=== PATIENT | male | born 1955 | race Caucasian/White ===

== ENCOUNTER 2021-05-23 13:58 | Inpatient (IN) | payer OTHER ==
[~2021-05-23] VITALS: Ht 185.4 cm; Wt 109.8 kg
[2021-05-23 14:03] VITALS: BP 148/71
[2021-05-23 15:25] LABS: HEMATOCRIT 41.7 % (42.0-52.0); HEMOGLOBIN 14.3 gm/dL (14.0-18.0); MCH 38.9 pg (26.0-34.0); MCHC 34.4 g/dL (28.0-37.0); MCV 113.1 fL (80.0-100.0); PLATELET COUNT 88 thou/uL (150-400); RBC 3.69 mil/uL (4.50-6.00); RDW 16.5 % (10.5-14.5); WBC 2.2 thou/uL (4.0-11.0)
[2021-05-23 15:34] LABS: CALCIUM 8.6 mg/dL (8.5-10.1); CREATININE 1.1 mg/dL (0.7-1.3); POTASSIUM 3.6 mmol/L (3.5-5.1)
[2021-05-23 15:44] LABS: ALBUMIN 3.3 g/dL (3.4-5.0); TOTAL BILIRUBIN 0.7 mg/dL (0.2-1.0); TOTAL PROTEIN 7.9 g/dL (6.4-8.2)
[2021-05-23 16:48] LABS: ABSOLUTE NEUTROPHILS 1.6 thou/uL (1.4-8.2)
--- NOTE | 2021-05-24 01:23 | NUR ---
FAMILY PHONE JORDAN [phone] YOUNGEST LUC [phone] MIDDLE LUIS ALBERTO [phone] [place] JOS[place] [id number] BRYAN HeadRAY)
[2021-05-24 06:09] LABS: HEMOGLOBIN 13.5 gm/dL (14.0-18.0); MCH 38.8 pg (26.0-34.0); MCHC 34.7 g/dL (28.0-37.0); MCV 111.9 fL (80.0-100.0); RBC 3.49 mil/uL (4.50-6.00); RDW 16.7 % (10.5-14.5); WBC 2.4 thou/uL (4.0-11.0)
[2021-05-24 06:21] LABS: CALCIUM 8.3 mg/dL (8.5-10.1); CREATININE 1.2 mg/dL (0.7-1.3); DIRECT BILIRUBIN 0.2 mg/dL (<0.1-0.2); PHOSPHORUS 3.7 mg/dL (2.6-4.7); POTASSIUM 3.8 mmol/L (3.5-5.1); TOTAL BILIRUBIN 0.7 mg/dL (0.2-1.0); TOTAL PROTEIN 7.3 g/dL (6.4-8.2)
--- NOTE | 2021-05-24 07:53 | NUR ---
UPDATED DAUGHTER IN LAW ON PLAN OF CARE.
--- NOTE | 2021-05-24 11:58 | EKG ---
[address] [place] [address] ELECTROCARDIOGRAM REPORT Name: MAURICIO HURLEY Room #: 170-4 ADM IN M.R.#: [id number] Admission: 05/23/21 Attend Phys: Milan Oliva Discharge: Date of : 59 Report #: [id number] [facility] ED Test Date: 2021-05-23 Test Time: 14:06:19 Pat Name: MAURIICO HURLEY Department: Room: 170 Gender: M Logistic Manager: palmer : 1955 Requested By: Maxim Hernandez Order Number: [id number] MD: Delfino Bishop Measurements Intervals [place] Rate: 72 P: -19 OR: 143 QRS: 4 QRSD: 105 T: 10 QT: 385 QTc: 422 Interpretive Statements Sinus rhythm No significant abnormality No previous ECG available for comparison Electronically Signed On 05-24-2021 11:57:52 SPINDRAW OPERATOR by Delfino Bishop [email or web address] <ELECTRONICALLY SIGNED> By: Delfino Bishop MD, [facility] 05/24/21 1157 1406 1406 Delfino Bishop MD, FACC /EPI
[2021-05-24 14:24] VITALS: BP 135/70
--- NOTE | 2021-05-24 14:27 | NUR ---
PT DESAT TO 70S WHEN TAKING O2 OFF
[2021-05-24 21:58] VITALS: BP 167/89
[2021-05-24 23:05] VITALS: BP 156/90
--- NOTE | 2021-05-24 23:30 | NUR ---
Pt. admitted to the unit from emergency room accompanied by staff. He is alert and oriented. Admission assessment and history is completed. He c/o nausea and ivp zofran given (see emar) with some relief noted.
[2021-05-25 04:45] VITALS: BP 143/61
--- NOTE | 2021-05-25 05:23 | NUR ---
Pt. rested quietly at intervals during the night when checked on during frequent rounds. He does have a non-productive congested cough and head of the bed elevated. No c/o increased shortness of air. Continues on opti- flow.
[2021-05-25 05:36] LABS: ALBUMIN 2.8 g/dL (3.4-5.0); CALCIUM 8.8 mg/dL (8.5-10.1); DIRECT BILIRUBIN 0.3 mg/dL (<0.1-0.2); PHOSPHORUS 4.6 mg/dL (2.5-4.9); POTASSIUM 3.8 mmol/L (3.5-5.1); TOTAL BILIRUBIN 0.7 mg/dL (0.2-1.0); TOTAL PROTEIN 7.5 g/dL (6.4-8.2)
[2021-05-25 07:51] VITALS: BP 130/69
[2021-05-25 15:11] VITALS: BP 129/111
--- NOTE | 2021-05-25 15:57 | NUR ---
PATIENT IS ALERT AND ORIENTED X4 THIS SHIFT. HE HAS DIMINISHED LUNG SOUNDS IN THE BASES. PATIENT IS STILL ON OPTIFLOW. PATIENT IS MED- SURGE/ TELE AND HAS BEEN SINUS XAVI THIS SHIFT. PATIENT HAS BEEN USING THE URINAL THIS SHIFT TO VOID. PATIENT HAS NO SKIN ISSUES AT THIS TIME. PEDRO LUIS HAS AN IV IN HIS RIGHT AC THAT IS SALINE LOCKED AND PATENT. PATIENT WILL CONTINUE TO BE MONITORED.
[2021-05-25 20:40] VITALS: BP 130/81
--- NOTE | 2021-05-25 23:32 | NUR ---
PT IS ALERT AND ORIENTED. ANSWERS QUESTIONS APPROPRIATELY TONIGHT. VSS AFEBRILE SAT FLUCTUATES 89-93% ON OPTIFLO FIO2 70% AND LF 50. SN ON MONITOR. NO C/O PAIN OR SOA TONIGHT SO FAR. BED DOWN CALL LIGHT IN REACH. BED ALARM IS ON.
[2021-05-26 04:11] VITALS: BP 136/74
[2021-05-26 04:49] LABS: ALBUMIN 2.8 g/dL (3.4-5.0); CALCIUM 8.9 mg/dL (8.5-10.1); CREATININE 0.9 mg/dL (0.7-1.3); DIRECT BILIRUBIN 0.3 mg/dL (<0.1-0.2); PHOSPHORUS 3.9 mg/dL (2.5-4.9); POTASSIUM 3.6 mmol/L (3.5-5.1); TOTAL BILIRUBIN 0.7 mg/dL (0.2-1.0); TOTAL PROTEIN 7.3 g/dL (6.4-8.2)
--- NOTE | 2021-05-26 07:36 | NUR ---
PT PROGRESSING SLOWLY TOWARDS D/C GOALS. VSS AFEBRILE. THIS AM. SATS WNL ON CURRENT OPIFLO 50LF AND 70% FIO2. NO C/O PAIN TONIGHT,
[2021-05-26 07:52] VITALS: BP 155/65
[2021-05-26 16:45] VITALS: BP 146/79
--- NOTE | 2021-05-26 17:16 | NUR ---
INITIAL ASSESSMENT: YOHANA reviewed chart and spoke with nursing and attending physician. Pt was admitted from home due to COVID pneumonia. Pt placed in Enhanced Isolation. Pt has not received a COVID vaccination. Pt is afebrile and on optiflow. Pt is on IV steroids and IV lasix. Pt is on Remdesivir. YOHANA placed call to pt's room. No answer. SW received message to call pt's son, Mario, regarding insurance issues. SW left voice message for Mario. Pt lives at home alone. Pt listed as patient pay. YOHANA is following to assist as needed with discharge planning.
--- NOTE | 2021-05-26 17:31 | NUR ---
CARE ASSUMED THIS AM, ALERT AND ORIENTED X4, DENIES ANY PAIN. COMPLAINED OF SOME NAUSEA THIS AM, ZOFRAN GIVEN. STATED IT BETTER. PT ON 75% AND 50L ON OPTIFLOW. USES URINAL. PT NICOLE IN LAW CALLED UPDATED ABOUT HIS CARE. CONTINUE TO BE ON ENHANCED ISOLATION. FALL PRECAUTIONS IN PLACE. DENIES ANY NEEDS ADELAIDA, WILL CONTINUE TO MONITOR.
[2021-05-26 18:59] VITALS: BP 131/72
[2021-05-26 22:06] LABS: HEMATOLOGY COMMENTS Note: (()); HEMOGLOBIN 14.3 g/dL (13.0-17.7)
--- NOTE | 2021-05-27 00:40 | NUR ---
PT ALERT AND ORIENTED X4. VSS AFEBRILE. O2 SATS 88-93% ON OPTIFLOW 75%FIO2 AND 50 LF. NO C/O PAIN, SOA, OR NAUSEA THIS SHIFT SO FAR. PT RESTING QUIETLY PRESENTLY. NO S/S DISTRESS. BED DOWN CALL LIGHT WITHIN REACH. BED ALARM.IS ON.
[2021-05-27 03:47] VITALS: BP 130/75
[2021-05-27 05:43] LABS: HEMATOCRIT 40.6 % (42.0-52.0); MCH 38.3 pg (26.0-34.0); MCHC 34.6 g/dL (28.0-37.0); MCV 110.6 fL (80.0-100.0); PLATELET COUNT 93 thou/uL (150-400); RBC 3.67 mil/uL (4.50-6.00); RDW 16.5 % (10.5-14.5)
[2021-05-27 06:18] LABS: % SATURATION 40 % (20-39); IRON 76 ug/dL (65-175); TIBC 189 ug/dL (250-450)
[2021-05-27 06:43] LABS: ALBUMIN 2.8 g/dL (3.4-5.0); CALCIUM 8.5 mg/dL (8.5-10.1); CREATININE 0.9 mg/dL (0.7-1.3); DIRECT BILIRUBIN 0.3 mg/dL (<0.1-0.2); PHOSPHORUS 3.7 mg/dL (2.5-4.9); POTASSIUM 3.6 mmol/L (3.5-5.1); TOTAL BILIRUBIN 0.8 mg/dL (0.2-1.0); TOTAL PROTEIN 7.3 g/dL (6.4-8.2)
[2021-05-27 06:53] LABS: URINE BILIRUBIN NEGATIVE (Negative); URINE BLOOD NEGATIVE (Negative); URINE CLARITY CLEAR; URINE COLOR YELLOW; URINE GLUCOSE-RANDOM* NEGATIVE (Negative); URINE KETONES NEGATIVE (Negative); URINE LEUKOCYTES-REFLEX NEGATIVE (Negative); URINE NITRITE-REFLEX NEGATIVE (Negative); URINE PROTEIN (DIPSTICK) NEGATIVE (Negative); URINE UROBILINOGEN 0.2 E.U./dl (0.2-1.0)
--- NOTE | 2021-05-27 06:53 | NUR ---
PT WANTED TO HAVE A BM THIS AM AND REFUSED TO USE BEDPAN. PT GOT UP TO BSC WITH STANDBY ASSISTANCE OF 2. PT DESATTED TO 83% -84%. PT PUT BACK TO BED RT NOTIFIED. OPTIFLOW INCREASED TO 100%. LASIX GIVEN IV. NOTIFIED STITCHING DEPARTMENT SUPERVISOR PTS FAMILY REQUESTED XRAY SINCE MANUEL DONE RECENTLY. PCXRAY ORDERED. PT RESTING IN BED. 93-94 % PRESENTLY.
[2021-05-27 07:51] VITALS: BP 117/65
--- NOTE | 2021-05-27 08:08 | HC ---
[facility] [place] [address] CONSULTATION Name: MAURICIO HURLEY Room #: 354- ADM IN M.R.#: [id number] Admission: 05/23/21 Attend Phys: Milan Oliva Discharge: Date of : 59 Report #: [id number] THIS REPORT FOR: cc: NO FAMILY PHYSICIAN or PCP NO FAMILY PHYSICIAN or PCP Zhen Liu MD ~ DATE OF SERVICE: 05/26/2021 ATTENDING PHYSICIAN: Dr. Oliva. REASON FOR EVALUATION: COVID-19 infection, complicated by pneumonitis and respiratory failure, ARDS. HISTORY OF PRESENT ILLNESS: Chart reviewed. The patient examined. A 65-year-old without significant medical history who presented to the Emergency Room with complaints of progressive dyspnea, nonproductive cough. He was noted to be hypoxemic with saturations in the upper 80s, improved on supplemental oxygen 4 liters and have some weakness and progressive dyspnea, subsequently developed some nausea as well. Evaluation noted bilateral pneumonitis on chest x-ray. Coronavirus testing was positive, interesting CBC. He was leukopenic with a total white count of 2200, thrombocytopenic of 88. MCV was elevated at 113, although he was not anemic. Procalcitonin less than 0.05. D-dimer was mildly elevated at 3.63. Blood cultures collected on the time of admission was negative thus far. He is currently requiring significant supplemental oxygen per Optiflow 50 liters per minute, FiO2 of 74%, maintained borderline saturations. He has been empirically started on combination empiric levofloxacin, empiric remdesivir as well as corticosteroids and vitamins. ALLERGIES: None known. CURRENT MEDICATIONS: Include levofloxacin, cholecalciferol, zinc, ascorbic acid, dexamethasone, furosemide, morphine, zolpidem p.r.n. q.6, antiemetics, remdesivir. PAST MEDICAL HISTORY: Otherwise, unremarkable. SOCIAL HISTORY: Nonsmoker, no ethanol, no illicit drug use. FAMILY HISTORY: Noncontributory. REVIEW OF SYSTEMS: Otherwise, unremarkable. PHYSICAL EXAMINATION: GENERAL: He is alert, cooperative. He is in moderate distress, generally lucid. VITAL SIGNS: Temperature 97.3, pulse 59, respirations 22, blood pressure [facility] [address] [place] [address] CONSULTATION Name: MAURICIO HURLEY Room #: 354-P [facility] IN ..#: [id number] Admission: 05/23/21 Attend Phys: Milan Oliva Discharge: Date of : 59 Report #: [id number] 155/65. SKIN: Warm, dry, no rashes. HEENT: Optiflow in place. Extraocular muscles intact. NECK: Supple. LUNGS: Bilateral scattered coarse breath sounds. HEART: Regular, borderline tachycardia bradycardic. I do not appreciate a murmur. ABDOMEN: Obese, mildly firm, nontender. EXTREMITIES: No cyanosis. GENITOURINARY AND RECTAL: Deferred. LABORATORY DATA: Electrolytes: Sodium 138, potassium 3.6, chloride 100, bicarbonate is 29, anion gap of 9, BUN and creatinine 36 and 0.9, glucose of 0.9, AST 52, ALT of 31, albumin of 2.8, total protein 7.3. Blood cultures sterile thus far. CRP of 46.2. Sed rate of 14. ASSESSMENT AND PLAN: COVID-19 infection, complicated by pneumonitis and respiratory failure with ARDS. He may have some occult process as well given the macrocytosis in the setting of thrombocytopenia and leukopenia with a marked lymphocytopenia. As a reason, we will continue empiric therapy with antibacterials. Try to obtain sputum. We will do additional diagnostic tests as well. He remains quite tenuous. We will continue to monitor expectantly, oxygen therapy as required, wean as allowed. <ELECTRONICALLY SIGNED> By: Zhen Liu MD 05/27/21 0808 0905 1215 Zhen Liu MD /nt
[2021-05-27 10:08] LABS: HIV ANTIBODY Non Reactive (Non Reactive)
[2021-05-27 11:41] LABS: ANISOCYTOSIS 1+; MACROCYTES 2+; PLATELET ESTIMATE DECREASED
--- NOTE | 2021-05-27 12:48 | NUR ---
CARE ASSUMED THIS AM, PT IS CURRENTLY ON 50L, 80% FIO2, STATED HE IS "NOT FEELING" TOO GOOD TODAY. ZOFRAN GIVEN FOR NAUSEA. TYELNOL FOR HEADACHE. PT ENCOURAGE TO PRONE AND USE IS WHEN POSSIBLE. PT DAUGHTER IN LAW CALLED, GAVE HER UPDATE. CONTINUE TI BE IN ENHANCED PRECAUTIONS. WILL CONTINUE TO MONITOR
[2021-05-27 15:03] VITALS: BP 136/72
--- NOTE | 2021-05-27 17:05 | NUR ---
YOHANA reviewed chart and spoke with nursing and attending physician. Pt remains in Enhanced Isolation due to COVID. Pt is afebrile and requiring optiflow. PT is on IV meds and completing course of Remdesivir. YOHANA spoke with pt's son, Mario, via phone. Introduced role of YOHANA. Pt is normally alert/orientated x 4 and lives at home alone. Prior to admission, pt was independent with ADLs. No use of DME. No hx of HH or post-acute placement. Pt's son is unsure if pt has a PCP. Pt's son states that pt has health insurance through [employer]. Pt's son is trying to find his insurance card or statement at home and will provide to YOHANA. YOHANA updated UR and director of case mgmt. Pt is listed as patient pay. YOHANA is following to assist as needed with discharge planning.
[2021-05-27 19:40] VITALS: BP 122/70
[2021-05-28 03:24] LABS: HEMATOCRIT 40.4 % (42.0-52.0); MCH 38.5 pg (26.0-34.0); MCHC 34.6 g/dL (28.0-37.0); MCV 111.1 fL (80.0-100.0); RBC 3.64 mil/uL (4.50-6.00); RDW 16.2 % (10.5-14.5); WBC 3.2 thou/uL (4.0-11.0)
[2021-05-28 04:40] VITALS: BP 126/73
[2021-05-28 05:39] LABS: ALBUMIN 2.7 g/dL (3.4-5.0); CALCIUM 8.7 mg/dL (8.5-10.1); DIRECT BILIRUBIN 0.3 mg/dL (<0.1-0.2); PHOSPHORUS 3.1 mg/dL (2.5-4.9); POTASSIUM 3.9 mmol/L (3.5-5.1); TOTAL BILIRUBIN 0.8 mg/dL (0.2-1.0); TOTAL PROTEIN 7.1 g/dL (6.4-8.2)
--- NOTE | 2021-05-28 07:33 | NUR ---
NO COMPLAINTS OF NAUSEA OVER NIGHT. OPTIFLOW AT 50L AND 80% WITH SATURATIONS AT 93%. PT WILL DESAT VERY QUICKLY WITH MOVEMENT AND WHEN HE IS HAVING COUGHING SPELLS. POC WITH IV ABX. A/OX4 AND VSS OVERNIGHT WITHOUT FEVER. CALL LIGHT WITHIN REACH.
[2021-05-28 07:44] VITALS: BP 133/61
--- NOTE | 2021-05-28 14:33 | NUR ---
YOHANA reviewed chart and spoke with nursing and attending physician. Pt remains in Enhanced Isolation due to COVID. Pt is afebrile and on optiflow. Pt is on IV abx and IV steroids. Therapy is on hold at this time, until pt is able to participate. Pt's insurance verified. Pt has active insurance through [employer]. YOHANA updated pt's son, who was able to find an insurance statement. YOHANA is following to assist as needed with discharge planning.
[2021-05-28 15:20] VITALS: BP 115/58
--- NOTE | 2021-05-28 18:01 | NUR ---
ASSUMED PATIENT CARE AT 0700. A/O X4. SOB WITH EXERTION. ON OPTIFLOW 50L/90%. NOT TOWARDS POC GOALS.
[2021-05-28 19:25] VITALS: BP 127/62
[2021-05-29 03:30] VITALS: BP 140/69
[2021-05-29 03:39] LABS: ABSOLUTE NEUTROPHILS 2.1 thou/uL (1.4-8.2); BASOPHILS 0.2 % (0.0-2.0); EOSINOPHILS 1.4 % (0.0-3.0); HEMATOCRIT 38.5 % (42.0-52.0); HEMOGLOBIN 13.7 gm/dL (14.0-18.0); LYMPHOCYTES 20.2 % (24.0-44.0); MCHC 35.5 g/dL (28.0-37.0); MCV 109.9 fL (80.0-100.0); MONOCYTES 6.4 % (1.0-8.0); PLATELET COUNT 88 thou/uL (150-400); POLYS 71.8 % (36.0-66.0); RDW 16.2 % (10.5-14.5)
--- NOTE | 2021-05-29 06:38 | NUR ---
VSS STABLE OVERNIGHT. PULSE OX SHOWING 02 SATURATION IN MID 90'S. VSS WITH NO FEVER NOR N/V. COVID POC WITH IV ABX. PT STILL NOT WANTING TO GET OUT OF BED. SPOKE TO PT DAUGHTER IN LAW WHO CALLS MULTIPLE TIMES. SHE SAID SHE WOULD LIKE HOSPITALIST TO CALL HER(JOSÉ) [phone]. PT VOIDS VIA URINAL.
[2021-05-29 08:14] VITALS: BP 120/75
--- NOTE | 2021-05-29 14:19 | NUR ---
SW reviewed chart and spoke with nursing and attending physician. Pt remains in Enhanced Isolation due to COVID. Pt is afebrile and on optiflow. Pt is on IV meds and Baricitinib. PT/OT evals completed today. YOHANA is following to assist as needed with discharge planning.
[2021-05-29 16:30] VITALS: BP 141/75
--- NOTE | 2021-05-29 18:31 | NUR ---
PATIENT OUT OF BED, EATTING BETTER. SLOLWLY TOWARDS POC GOALS,
[2021-05-29 19:47] VITALS: BP 135/82
[2021-05-30 02:59] LABS: HEMATOCRIT 40.2 % (42.0-52.0); MCH 38.9 pg (26.0-34.0); MCV 111.3 fL (80.0-100.0); RBC 3.61 mil/uL (4.50-6.00); RDW 16.2 % (10.5-14.5); WBC 4.3 thou/uL (4.0-11.0)
[2021-05-30 03:04] LABS: ALBUMIN 2.6 g/dL (3.4-5.0); CALCIUM 8.9 mg/dL (8.5-10.1); POTASSIUM 3.9 mmol/L (3.5-5.1); TOTAL BILIRUBIN 0.8 mg/dL (0.2-1.0); TOTAL PROTEIN 7.3 g/dL (6.4-8.2)
[2021-05-30 03:50] VITALS: BP 138/76
--- NOTE | 2021-05-30 04:34 | NUR ---
PT MAKING SLOW PROGRESS TOWARDS GOALS. PT INITIALLY ON OPTIFLO AT 55L/83% FIO2. LUNGS DIMINISHED THROUGHOUT. PT REPORTS COUGH IS GREATLY REDUCED IN INTENSITY. THIS AM PT PRODCUCED SMALL AMOUNT OF BLOOD TINGED CLEAR SPUTUM WITH COUGHING. OPTFLO SET AT 50L/76% FIO2. LUNGS REMAIN DIMINISHED.
[2021-05-30 08:04] VITALS: BP 134/86
--- NOTE | 2021-05-30 14:08 | NUR ---
SW reviewed chart and spoke with nursing and attending physician. Pt remains in Enhanced Isolation due to COVID. Pt is afebrile and requiring optiflow. Pt is on IV steroids and IV lasix. No weekend discharge planned. Chest CT ordered today. YOHANA is following to assist as needed with discharge planning.
[2021-05-30 16:30] VITALS: BP 149/62
--- NOTE | 2021-05-30 18:10 | NUR ---
ASSUMED PATIENT CARE AT 0700. A/O X4. OUT OF BED TO CHAIR. SLOWLY TOWARDS POC GOALS.
[2021-05-30 19:22] VITALS: BP 116/78
[2021-05-31 06:01] VITALS: BP 136/83
[2021-05-31 07:43] VITALS: BP 130/84
--- NOTE | 2021-05-31 16:32 | NUR ---
RN ASSUMED PT'S CARE AT 0700AM, PT IS A&OX4, PT IS ON MASK O2 15L/MIN, PT'S O2SAT STAY AT 92-95%, PT'S VS ARE STABLE BY THIS TIME, BUT PT STILL HAS SOB WITH ACTIVITIES, PT IS CONTINUING ABX AND TREAT COVID MEDICATIONS, PT DENIES PAIN BY THIS TIME.
[2021-05-31 16:54] VITALS: BP 149/92
[2021-05-31 20:17] VITALS: BP 135/82
--- NOTE | 2021-06-01 04:27 | NUR ---
PT ALERT & ORIENTED X 4. CURRENTLY ON OPTILFOW 45L 72% FIO2. SR ON TELE MONITOR. VSS AFEBRILE. NO C/O PAIN, NAUSEA/VOMITTING. PT IS ABLE TO MAKE NEEDS KNOWN. CONTINUE WITH PLAN OF CARE.
[2021-06-01 05:35] LABS: ABSOLUTE NEUTROPHILS 3.2 thou/uL (1.4-8.2); BASOPHILS 0.3 % (0.0-2.0); EOSINOPHILS 1.5 % (0.0-3.0); HEMATOCRIT 39.9 % (42.0-52.0); HEMOGLOBIN 13.8 gm/dL (14.0-18.0); LYMPHOCYTES 18.7 % (24.0-44.0); MCH 38.2 pg (26.0-34.0); MCHC 34.6 g/dL (28.0-37.0); MCV 110.4 fL (80.0-100.0); MONOCYTES 5.8 % (1.0-8.0); PLATELET COUNT 138 thou/uL (150-400); POLYS 73.7 % (36.0-66.0); RBC 3.62 mil/uL (4.50-6.00); RDW 16.1 % (10.5-14.5); WBC 4.3 thou/uL (4.0-11.0)
[2021-06-01 05:47] VITALS: BP 142/78
[2021-06-01 07:25] VITALS: BP 148/68
--- NOTE | 2021-06-01 15:21 | NUR ---
RN ASSUMED PT'S CARE AT 0700AM, PT IS A&OX4, PT IS ON OPTIFLOW O2 60%, 40L/MIN , PT'S O2SAT STAY AT 92-96%, PT HAS SOB WITH EXERTION, PT'S VS ARE STABLE BY THIS TIME, PT IS CONTINUING PO ABX AND TREAT COVID MEDICATIONS, PT DENIES PAIN BY THIS TIME.
[2021-06-01 15:52] VITALS: BP 143/91
[2021-06-01 19:32] VITALS: BP 121/68
[2021-06-02 03:34] VITALS: BP 124/58
--- NOTE | 2021-06-02 03:51 | NUR ---
ASSUMED PT CARE AT 1900. PT ALERT & ORIENTED X 4. NO C/O OF PAIN, NAUSEA/VOMITTING. VSS AFEBRILE. CURRENTLY ON OPTIFLOW 40L 53% FIO2. O2 SATS 92-95% ALL NEEDS ARE MET AT THIS TIME. CONTINUE WITH POC GOALS.
[2021-06-02 07:51] VITALS: BP 132/97
[2021-06-02 15:57] VITALS: BP 116/66
--- NOTE | 2021-06-02 16:06 | NUR ---
YOHANA reviewed chart and spoke with nursing and attending physician. Pt remains in Enhanced Isolation due to COVID. Pt is afebrile and on optiflow. Pt is on IV steroids and IV lasix. Therapy ordered. YOHANA spoke with pt via phone. Introduced role of SW. Pt is alert/orientated and states he is feeling better. Pt is aware that he may need to d/c home with home O2. Pt does not currently have a PCP. Plan is for pt to discharge home when medically stable. YOHANA is following to assist as needed with discharge planning.
--- NOTE | 2021-06-02 18:45 | NUR ---
RN ASSUMED PT'S CARE AT 0700AM, PT IS A&OX4, PT IS OFF OPTIFLOW AND PT IS ON O2 5-6L/MIN/NC AT MOST OF TIME, PT 'S O2SAT STAY AT 92-96%, PT'S VS ARE STABLE AT DAY SHIFT, BUT PT STILL HAS SOB WITH ACTIVITIES, PT GETS UP CHAIR AND BATH ROOM WITHOUT ASSIST, PT DENIES PAIN BY THIS TIME, PT IS CONTINUING PO ABX AND TREAT COVID MEDICATIONS.
[2021-06-02 19:14] VITALS: BP 119/75
[2021-06-03 04:13] VITALS: BP 126/57
[2021-06-03 05:14] LABS: MCV 109.6 fL (80.0-100.0); RDW 15.8 % (10.5-14.5)
[2021-06-03 05:20] LABS: ABSOLUTE NEUTROPHILS 2.9 thou/uL (1.4-8.2); ALBUMIN 2.6 g/dL (3.4-5.0); BASOPHILS 0.3 % (0.0-2.0); CALCIUM 8.8 mg/dL (8.5-10.1); CREATININE 0.8 mg/dL (0.7-1.3); DIRECT BILIRUBIN 0.2 mg/dL (<0.1-0.2); EOSINOPHILS 1.5 % (0.0-3.0); HEMATOCRIT 37.5 % (42.0-52.0); HEMOGLOBIN 13.4 gm/dL (14.0-18.0); LYMPHOCYTES 23.5 % (24.0-44.0); MCH 39.1 pg (26.0-34.0); MCHC 35.7 g/dL (28.0-37.0); PHOSPHORUS 3.6 mg/dL (2.5-4.9); PLATELET COUNT 147 thou/uL (150-400); POLYS 65.7 % (36.0-66.0); POTASSIUM 3.1 mmol/L (3.5-5.1); RBC 3.42 mil/uL (4.50-6.00); TOTAL BILIRUBIN 0.5 mg/dL (0.2-1.0); TOTAL PROTEIN 6.8 g/dL (6.4-8.2); WBC 4.4 thou/uL (4.0-11.0)
[2021-06-03 07:33] VITALS: BP 99/47
[2021-06-03 08:30] VITALS: BP 132/65
[2021-06-03 15:53] VITALS: BP 116/66
--- NOTE | 2021-06-03 18:21 | NUR ---
RN ASSUMED PT'S CARE AT 0700AM, PT IS A&OX4, PT IS ON O2 4L/MIN/NC, PT IS CONTINUING TREAT COVID MEDICATIONS, PT'S O2SAT STAY 92-96%, PT DENIES PAIN AND SOB AT DAY SHIFT.
[2021-06-03 19:04] VITALS: BP 120/69
[2021-06-04 02:56] VITALS: BP 130/79
--- NOTE | 2021-06-04 03:21 | NUR ---
Slept some and woke up early. Now up in the chair eating sandwich. Maintaining O2 sat in the mid 90's on 3L/NC. Verbalized improvement in breathing. Up ad jeannie in room with steady gait. Cont. on enhanced precaution , afebrile. Making progress towards care plan goals.
[2021-06-04 05:14] LABS: ABSOLUTE NEUTROPHILS 2.8 thou/uL (1.4-8.2); BASOPHILS 0.2 % (0.0-2.0); HEMATOCRIT 35.5 % (42.0-52.0); HEMOGLOBIN 12.5 gm/dL (14.0-18.0); LYMPHOCYTES 23.4 % (24.0-44.0); MCH 38.8 pg (26.0-34.0); MCHC 35.3 g/dL (28.0-37.0); MONOCYTES 8.7 % (1.0-8.0); PLATELET COUNT 135 thou/uL (150-400); POLYS 66.7 % (36.0-66.0); RBC 3.23 mil/uL (4.50-6.00); RDW 15.7 % (10.5-14.5); WBC 4.2 thou/uL (4.0-11.0)
[2021-06-04 05:42] LABS: ALBUMIN 2.6 g/dL (3.4-5.0); CALCIUM 8.5 mg/dL (8.5-10.1); CREATININE 0.8 mg/dL (0.7-1.3); DIRECT BILIRUBIN 0.1 mg/dL (<0.1-0.2); POTASSIUM 3.6 mmol/L (3.5-5.1); TOTAL BILIRUBIN 0.4 mg/dL (0.2-1.0); TOTAL PROTEIN 6.4 g/dL (6.4-8.2)
[2021-06-04 07:38] VITALS: BP 115/70
[2021-06-04] MEDS ORDERED: DEXAMETHASONE 22 M1 PO (12:34)
[2021-06-04] MEDS ORDERED: ZINC SULFATE50 MG PO (12:34)
[2021-06-04] MEDS ORDERED: VITAMIN D325 MC2 PO (12:34)
[2021-06-04] MEDS ORDERED: PROAIR HFA8.5 GM INH (12:34)
[2021-06-04] MEDS ORDERED: VITAMIN C1000 MG PO (12:34)
[2021-06-04] MEDS ORDERED: MUCINEX600 MG PO (12:34)
[2021-06-04 12:47] VITALS: BP 115/70
--- NOTE | 2021-06-04 14:48 | NUR ---
DISCHARGE NOTE; YOHANA reviewed chart and spoke with nursing and attending physician. Pt remains in Enhanced Isolation due to COVID. Pt is medically stable for discharge home today. Rest/exercise oximetry completed today. Pt does not need home O2. SW spoke with pt via phone to discuss discharge plan. Pt states he is ready to discharge home and his family will provide transportation home. SW discussed possible HH referral. Pt declines HH, stating he has good family support to help him. YOHANA updated pt's nurse. No SW discharge needs identified. SW is available to assist should needs arise.
--- NOTE | 2021-06-04 18:15 | NUR ---
RN ASSUMED PT'S CARE AT 0700-1600PM, PT IS A&OX4, PT IS OFF O2 AND HE IS ON ROOM AIR, PT'S O2SAT STAY AT 92-94%, PT DENIES PAIN AND SOB WITH ACITIVIES, RN RECEIVED ORDER TO DC PT TO HOME, PT UNDERSTANDS D TEACHING WELL , INCLUDING MEDICATIONS, AND COVID ISOLATION TOTAL WEEKS SINCE COVID POSITIVE DAY. PT'S SON OTR FLATBED DRIVER PT AT 1600PM.
== END 2021-06-04 16:08 | disposition home or self-care (01) | DRG 871 ==
LOC: ER 13:58 → EROBS 16:45 → 3W 16:45 → EROBS 05-24 16:28 → 3W 05-24 22:40
PROVIDERS: Emergency Medicine; Internal Medicine; Specialist; ADMIT Hospitalist; ATTEND Hospitalist
PROC: XW033E5 Introduction of Remdesivir Anti-infective into Peripheral Vein, Percutaneous Approach, New Technology Group 5 (ICD-10-PCS; principal; 2021-05-23)
PROC: 5A0945A Assistance with Respiratory Ventilation, 24-96 Consecutive Hours, High Flow/Velocity Cannula (ICD-10-PCS; 2021-05-24)
PROC: XW0DXM6 Introduction of Baricitinib into Mouth and Pharynx, External Approach, New Technology Group 6 (ICD-10-PCS; 2021-05-26)
PROC: 5A0945A Assistance with Respiratory Ventilation, 24-96 Consecutive Hours, High Flow/Velocity Cannula (ICD-10-PCS; 2021-05-28)
PROC: 5A0945A Assistance with Respiratory Ventilation, 24-96 Consecutive Hours, High Flow/Velocity Cannula (ICD-10-PCS; 2021-05-31)
DX: A41.9 Sepsis, unspecified organism (principal); U07.1 COVID-19; J80 Acute respiratory distress syndrome; J12.82 Pneumonia due to coronavirus disease 2019; D61.818 Other pancytopenia; G93.40 Encephalopathy, unspecified; E87.3 Alkalosis; T50.2X5A Adverse effect of carbonic-anhydrase inhibitors, benzothiadiazides and other diuretics, initial encounter; I10 Essential (primary) hypertension; E78.5 Hyperlipidemia, unspecified; R74.01 Elevation of levels of liver transaminase levels; R53.81 Other malaise; E66.01 Morbid (severe) obesity due to excess calories; R79.1 Abnormal coagulation profile; R16.1 Splenomegaly, not elsewhere classified; Z68.31 Body mass index [BMI] 31.0-31.9, adult; Z79.899 Other long term (current) drug therapy; Y92.89 Other specified places as the place of occurrence of the external cause
CPT/HCPCS: 10879